=== PATIENT | female | born 1980 | race Caucasian/White ===

== ENCOUNTER 2019-03-01 14:11 | Emergency (ER) | payer MEDICAID ==
[~2019-03-01] VITALS: Ht 162.6 cm; Wt 68.0 kg
[2019-03-01 14:19] VITALS: Ht 162.6 cm; Wt 68.0 kg
[2019-03-01 14:52] LABS: BASOPHIL % 0.9 % (0-2); PLATELET COUNT 333 x10^3mcL (130-400); RED CELL DISTRIBUTION WIDTH 13.2 % (11.5-14.5)
[2019-03-01 16:58] VITALS: BP 126/69
== END 2019-03-01 16:58 | disposition home or self-care (01) ==
LOC: ED 14:11
PROVIDERS: Emergency Medicine
DX: O02.1 Missed abortion (principal); Z3A.11 11 weeks gestation of pregnancy
CPT/HCPCS: 36415